=== PATIENT | female | born 1950 | race Caucasian/White ===

== ENCOUNTER 2017-12-22 06:24 | Day surgery (SDC) | payer MEDICARE, OTHER ==
[2017-12-22] MEDS ORDERED: FENTAnyl 50 MCG/ML VIAL (08:21)
[2017-12-22] MEDS ORDERED: MIDAZOLAM 1 MG/ML 2 ML INJ ×2 (08:22)
== END 2017-12-22 13:19 | disposition home or self-care (01) ==
LOC: GIL 06:24
DX: K92.1 Melena (principal); K64.8 Other hemorrhoids; E11.9 Type 2 diabetes mellitus without complications
CPT/HCPCS: 45378; 82962